=== PATIENT | female | born 2000 | race African-American/Black ===

== ENCOUNTER → 2021-11-10 | Emergency (ER) | payer MEDICAID ==
[~2021-11-10] VITALS: Ht 170.2 cm; Wt 54.0 kg
[~2021-11-10] MED LIST: CYCL10TA21 MT; HYDROCODONE/ACETAMINOPHEN 10/325MG TABLET PO ONE; IBUPROFEN 600MG TABLET PO ONE; NAPR-1176 MT
[2021-11-10 22:20] VITALS: BP 115/75
== END ==
LOC: ER 18:14
DX: S53.402A Unspecified sprain of left elbow, initial encounter (principal); S63.502A Unspecified sprain of left wrist, initial encounter; S40.012A Contusion of left shoulder, initial encounter; V49.9XXA Car occupant (driver) (passenger) injured in unspecified traffic accident, initial encounter; Y93.89 Activity, other specified; Y92.89 Other specified places as the place of occurrence of the external cause; Y99.8 Other external cause status
CPT/HCPCS: 73030; 73080; 73110; 73130; 81025; 99284